=== PATIENT | female | born 1995 | race African-American/Black ===

== ENCOUNTER 2024-06-05 10:29 | Emergency (ER) | payer SELFPAY ==
[~2024-06-05] VITALS: Ht 170.2 cm; Wt 73.0 kg
[2024-06-05 10:35] VITALS: BP 123/82; PULSE 64; RESP 15; TEMP 98.2; O2SAT 100
== END 2024-06-05 17:08 | disposition left against medical advice (07) ==
LOC: ER 10:38
DX: R07.89 Other chest pain (principal); F41.0 Panic disorder [episodic paroxysmal anxiety]
CPT/HCPCS: 99283